=== PATIENT | male | born 1935 | race Caucasian/White ===

== ENCOUNTER 2022-01-22 09:27 | Emergency (ER) | payer MEDICARE, SELFPAY ==
[2022-01-22] VITALS (12 sets, daily range): BP systolic 119–152; BP diastolic 52–92; PULSE 77–97; RESP 13–22; TEMP 36.4–36.8; O2SAT 98–100
[2022-01-22 10:11] LABS: Basophils Absolute Auto 0.2 K/mm3 (0.0-0.1); Basophils Percent Auto 1.5 % (0.2-1.2); Eosinophils Absolute Auto 0.5 K/mm3 (0-0.3); Eosinophils Percent Auto 3.7 % (0-4.4); Immature Granulocyte Absolute 0.07 K/mm3 (0.00-0.031); Immature Granulocyte Percent A 0.5 % (0-0.5); Lymphocytes Absolute Auto 1.97 K/mm3 (0.9-3.2); Lymphocytes Percent Auto 14.7 % (18.3-44.2); Mean Corpuscular HGB Conc 26.4 g/dl (32-36); Mean Corpuscular Hemoglobin 17.1 pg (26-34); Mean Corpuscular Volume 64.9 fl (80-100); Monocytes Absolute Auto 1.4 K/mm3 (0.1-0.6); Monocytes Percent Auto 10.2 % (2.6-8.5); Neutrophils Absolute Auto 9.3 K/mm3 (1.3-6.7); Neutrophils Percent Auto 69.4 % (45.5-73.1); Platelet Count Result 871 k/mm3 (150-375); Red Blood Count 3.85 M/mm3 (4.6-6.20); Red Cell Distribution Width 21.5 % (11.5-14.5); White Blood Count 13.4 K/mm3 (4.5-10.0)
[2022-01-22 10:15] LABS: Hemoglobin 6.6 g/dL (14.0-18.0)
[2022-01-22 10:26] LABS: Alanine Aminotransferase 21 U/L (6-50); Albumin Level 4.5 g/dL (3.5-5.1); Alkaline Phosphatase 52 U/L (38-126); Anion Gap 11 mmol/L (8-16); Aspartate Amino Transferase 32 U/L (17-59); Blood Urea Nitrogen 19 mg/dL (9-20); Calcium 8.6 mg/dL (8.4-10.2); Carbon Dioxide 24 mmol/L (22-30); Chloride 107 mmol/L (98-107); Estimated CRCL calculation 37 ml/min; Estimated Glomerular Filt Rate 52; Glucose 125 mg/dL (65-110); Potassium 4.2 mmol/L (3.4-5.0); Sodium 142 mmol/L (137-145)
[2022-01-22 10:29] LABS: INR 1.2; Prothrombin Time 14.7 Seconds (11.1-14.7)
[2022-01-22 10:30] LABS: Partial Thromboplastin Time 32.4 SECONDS (22.3-36.8)
[2022-01-22 10:35] LABS: Platelet Estimate Increased (Adequate)
[2022-01-22 10:36] LABS: Anisocytosis 1+ (NORMAL); Hypochromasia 3+ (NORMAL); Ovalocytes 1+ (NORMAL); Schistocytes Rare (NORMAL)
[2022-01-22 10:37] LABS: Poikilocytosis 1+ (NORMAL); Target Cells 1+ (NORMAL)
[2022-01-22 10:38] LABS: Microcytosis 1+ (NORMAL)
--- NOTE | 2022-01-22 10:58 | ED.GENADULT ---
HPI - General Adult General Chief complaint: Recheck/Abnormal Lab/Rx Stated complaint: low hgb Time Seen by Provider: 01/22/22 10:00 History of Present Illness HPI narrative: 86-year-old male who is in relatively good health presents to our department for a blood transfusion . Earlier this week patient went to donate blood as he does regularly and was found to have a hemoglobin of 6.6. Repeat testing was done at his primary care provider's office and the anemia was confirmed. Patient has never parents anything at this before and has no prior blood transfusions. He denies hematuria, hematochezia, melanotic stools. Overall he feels well although admits that sometimes he feels tired. Denies chest pain or shortness of breath. Related Data Allergies Allergy/AdvReac Type Severity Reaction Status Date / Time No Known Allergies Allergy Mild Verified 12/30/20 09:32 Review of Systems Review of Systems: CONSTITUTIONAL: Denies fever, chills, or sweats. EYES: Denies visual changes, redness, or discharge. ENT: Denies rhinorrhea, congestion, sore throat, or otalgia. CARDIOVASCULAR: Denies chest pain, palpitations, or edema. RESPIRATORY: Denies cough or dyspnea. GASTROINTESTINAL: Denies abdominal pain, nausea, vomiting, or diarrhea. GENITOURINARY: Denies dysuria or hematuria. SKIN: Denies rash or itching. MUSCULOSKELETAL: Denies back pain, joint pain, or myalgia. NEUROLOGIC: Denies headache, numbness, or weakness. PSYCHIATRIC: Denies anxiety or depression. [facility] Past Medical History Medical History (Updated 01/22/22 @ 15:28 by Aj Salinas DO) H/O hearing loss Surgical History Surgical History H/O colonoscopy (~2004) Family History Family History Other No family history of cardiovascular disease Social History Social History Alcohol intake: current Exam Narrative: GENERAL: Well-appearing, well-nourished, and in no acute distress. HEAD: Normocephalic, atraumatic. EYES: PERRLA and EOMI. ENT: Nares clear, no rhinorrhea or epistaxis. Mucous membranes pale and moist. NECK: Supple. CHEST: Clear to auscultation. No respiratory distress. HEART: Regular rate and rhythm. No murmur heard. Normal peripheral pulses. ABDOMEN: Soft, nontender, nondistended, normal active bowel sounds. EXTREMITIES: Normal range of motion. No edema. SKIN: Warm, dry, no rash. NEURO: No focal deficits. Alert and oriented x3. PSYCH: Normal mood and affect. Course Vital Signs Vital signs: Vital Signs Temperature 97.5 F L 01/22/22 09:40 Pulse Rate 94 01/22/22 09:40 Respiratory Rate 22 H 01/22/22 09:40 Blood Pressure 125/52 L 01/22/22 09:40 Pulse Oximetry 100 01/22/22 09:40 Oxygen Delivery Room Air 01/22/22 09:40 Temperature 98.0 F 01/22/22 15:27 Pulse Rate 80 01/22/22 15:27 Respiratory Rate 22 H 01/22/22 15:27 Blood Pressure 141/66 H 01/22/22 15:27 Pulse Oximetry 100 01/22/22 15:27 Oxygen Delivery Room Air 01/22/22 09:40 Medical Decision Making MDM Narrative Medical decision making narrative: Bedside Hemoccult is negative. Vitals are stable. He patient has a hemoglobin of 6.6. Type and screen has been ordered and will transfuse 1 unit. Patient takes a single baby aspirin daily but no other anticoagulant antiplatelet/medications. Transfusion is complete patient continues to verbalize feeling well and wanting to leave. He agrees to follow-up with his PCP and has an appointment scheduled in 4 days. Vitals are stable and he is stable for DC home. Vital Signs Vital Signs: Vital Signs Temperature 97.5 F L 01/22/22 09:40 Pulse Rate 94 01/22/22 09:40 Respiratory Rate 22 H 01/22/22 09:40 Blood Pressure 125/52 L 01/22/22 09:40 Pulse Oximetry 100 01/22/22 09:40 Oxygen Delivery Room Air 01/22/22 09:40
--- NOTE | 2022-01-22 11:05 | ECG_ITS ---
Measurements Intervals [place] Rate: 82 P: 58 RI: 193 QRS: -9 QRSD: 112 T: 45 QT: 377 QTc: 442 Interpretive Statements SINUS RHYTHM INCOMPLETE RIGHT BUNDLE BRANCH BLOCK [90+ ms QRS DURATION, TERMINAL R IN V1/V2, 40+ ms S IN I/aVL/V4/V5/V6] NO PREVIOUS ECG AVAILABLE FOR COMPARISON Electronically Signed On 01-22-2022 16:42:36 [employer] by Mayo Curtis M.D.
[2022-01-22] MEDS: SODIUM CHLORIDE 0.9% IV 250 ML 30 ML IV CONT (14:15)
== END 2022-01-22 15:35 | disposition home or self-care (01) ==
PROVIDERS: Emergency Provider Emergency Medicine
DX: D64.9 Anemia, unspecified (principal); H91.90 Unspecified hearing loss, unspecified ear
CPT/HCPCS: 36415; 36430; 80053; 85025; 85610; 85730; 86850; 86900; 86901; 86923; 93005; 96360; 99283; 99285; J7050; P9016

== ENCOUNTER 2024-01-18 11:17 | Outpatient (CLI) | payer MEDICARE, SELFPAY ==
--- NOTE | ~2024-01-18 | CT_ITS ---
CT of the Abdomen and Pelvis: Indication: Rectal abscess Technique: 2.5 mm axial scans were obtained through the abdomen and pelvis following intravenous adm inistration of 100 cc of Omnipaque 350. Dose reduction technique was used on this scan by utilizing a utomated exposure control and iterative reconstruction technique. The dose-length product (DLP) was 5 31.35 mGy-cm. Findings: Scans through the lung bases imaged probable minimal left basilar atelectatic change. The liver, spleen, pancreas, gallbladder, adrenals and kidneys are within normal limits. There are at herosclerotic calcifications of the aorta. No lymphadenopathy. No bowel obstruction or bowel wall thickening. Duodenal diverticulum present. No perirectal abscess e vident. Images through the pelvis were performed. Urinary bladder unremarkable. Prostate gland minimally enla rged. Impression: No perirectal abscess identified. No acute inflammatory process seen. Reviewed, dictated and finalized at [facility]. [employer] Impression: No perirectal abscess identified. No acute inflammatory process seen.
[2024-01-18 12:46] LABS: Estimated Glomerular Filt Rate 44
== END 2024-01-18 11:18 | disposition home or self-care (01) ==
LOC: MICIMG 11:19
PROVIDERS: PCP Internal Medicine; Visit Provider Internal Medicine
DX: K61.1 Rectal abscess (principal)
CPT/HCPCS: 74177; Q9967